=== PATIENT | female | born 1990 | race Caucasian/White ===

== ENCOUNTER 2025-05-10 16:02 | Emergency (ER) | payer MEDICAID, SELFPAY ==
[2025-05-10 16:03] VITALS: BP 132/82; PULSE 61; TEMP 37.3; O2SAT 99
--- NOTE | 2025-05-10 16:05 | XRR_ITS ---
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 Views: 3 or more views. COMPARISON: No relevant prior studies available. FINDINGS: Bones/joints: No acute fracture. Normal alignment. Soft tissues: Normal. XR/XR wrist RT min 3V* [id number] IMPRESSION: No acute findings.
--- NOTE | 2025-05-10 16:55 | W.ED.EXTPRO ---
HPI - Extremity Problem General: Chief complaint: Extremity Injury, Upper Stated complaint: Hurt R Wrist Time Seen by Provider: 05/10/25 16:04 Source: patient Mode of arrival: ambulatory Limitations: no limitations History of Present Illness: Patient is a 35-year-old female who presents emergency department claiming of right wrist pain for the past couple days. 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 Pain worse with grasping objects, but she has not been having any weakness or numbness into her hand. No pain with range of motion at the wrist, pain is specifically worse with palpation as well. [id number] meds only, she arrives with an [place] wrap. No elbow pain. No trauma. MD Complaint: joint pain Onset (ago): day(s) Pain Consistency: constant Location: right and upper extremity (wrist) Associated symptoms: Deny chest pain, fever(s) or rash Related Data Home Medications ?Medication ?Instructions ?Recorded ?Confirmed amoxicillin 500 mg capsule 500 mg PO TID 05/05/25 05/05/25 Previous Rx's ?Medication ?Instructions ?Recorded lidocaine HCl 2 % mucosal solution 1 applic mucous membrane BID #100 05/05/25 (Lidocaine Viscous) mL prednisone 20 mg tablet 60 mg (3 x 20 mg) PO DAILY 5 days 05/05/25 #15 tabs Allergies Allergy/AdvReac Type Severity Reaction Status Date / Time ceclor Allergy Mild rash Uncoded 05/10/25 16:10 Review of Systems General: Reports: 10 or more systems reviewed and unremarkable except in HPI and below Const: Denies: fever(s) or chills Card: Denies: chest pain Resp: Denies: dyspnea or productive cough GI: Denies: abdominal pain, nausea, vomiting or diarrhea : Denies: flank pain Musc: Reports: joint pain (right wrist); Denies: neck pain, back pain, extremity pain, extremity swelling, joint swelling, joint redness, joint warmth, limited range of motion or muscle weakness Skin/Breast: Denies: rash Neuro: Denies: headache(s), numbness in extremities or weakness in extremities PFS ED PFSH: Family History Mother Hypertension Social History Smoking and tobacco/nicotine status: never used tobacco/nicotine Alcohol intake: never Substance/Drug Use: never Adopted: No Caregiver/support person: No Lives independently: No Household members: spouse and children Housing: Manufactured/Mobile home Current occupational status: employed Sexually active: Yes Do you think of yourself as: Straight/Heterosexual Current gender identity: Female Physical Exam Const: COMMON NORMALS: no acute distress, patient oriented x3, no limitations, healthy appearing, alert and well nourished HENMT: COMMON NORMALS: normocephalic and atraumatic HEAD & SCALP: normocephalic and atraumatic Neck/C-Spine: COMMON NORMALS: full ROM, supple and no meningeal signs Resp: COMMON NORMALS: normal respiratory effort, No use of accessory muscles and clear to auscultation bilaterally AUSCULTATION: clear to auscultation bilaterally Cardio: COMMON NORMALS: regular rate and regular rhythm RATE: regular rate RHYTHM: regular rhythm Extremity: COMMON NORMALS: capillary refill normal and no clubbing, cyanosis or edema NARRATIVE EXTREMITY EXAM: Tender to palpation to distal right wrist. No swelling, signs of trauma or deformity, or bruising. Negative Phalen's. Negative Tinel's sign. No pain with range of motion at the wrist. Normal elbow examination. Neuro: COMMON NORMALS: patient oriented x3, moves all extremities, no focal motor deficits and no sensory deficits noted SENSORIUM/ORIENTATION: Yes alert MENINGEAL SIGNS: Yes no meningeal signs Skin: COMMON NORMALS: no rashes or lesions noted GENERAL SKIN EXAM: no rashes or lesions noted Course Vital Signs: Vital signs: Vital Signs Temperature 99.2 F 05/10/25 16:03 Pulse Rate 61 05/10/25 16:03 Blood Pressure 132/82 05/10/25 16:03 Pulse Oximetry 99 05/10/25 16:03 Oxygen Delivery Me thod Room Air 05/10/25 16:03 MDM - Extremity (Nontraumatic) Medical Decision Making Patient presented with right wrist pain, no trauma, states that 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 No concern for carpal tunnel syndrome, negative testing for this on exam. There is no swelling of the wrist or signs of deformity or trauma. She was tender to palpation of the distal right wrist with point tenderness. The x-ray was negative for any acute findings. Suspect muscle strain. Will be sent home with instructions for conservative management. XR interpretation done by ED provider, pending radiology final review ED provider radiology interpretation(s): X-ray right hand negative. Discharge Plan Discharge Patient Disposition: Home Clinical Impression: Right wrist sprain Qualifiers: Encounter type: initial encounter Wrist sprain location: unspecified location Qualified Code(s): S63.501A - Unspecified sprain of right wrist, initial encounter Condition: Stable Prescriptions: No Action amoxicillin 500 mg capsule 500 mg PO TID prednisone 20 mg tablet 60 mg PO DAILY 5 Days Qty: 15 0RF lidocaine HCl [Lidocaine Viscous] 2 % solution 1 applic mucous membrane BID Qty: 100 0RF Discharge Orders: Discharge ED (Routine); Ordered 05/10/25 Ordered By: Lauri Weinstein Referrals: SANDY [Other] Varinder Nelson FNP [Primary Care Provider, Family Practice] Patient Instructions: Patient Portal & Luna Instructions Activity Restrictions/Additional Instructions: Wrist Pain Discharge Instructions Diagnosis: Right wrist pain, X-ray normal. Suspected myopathy (etiology undetermined). Discharge Instructions and Home Management: - Activity Modification: - Avoid activities that exacerbate wrist pain, especially repetitive or forceful wrist movements. - Use the affected hand for light activities only; avoid heavy lifting or weight-bearing tasks. - Immobilization: - Consider a wrist-neutral splint, especially at night, to reduce strain and support the joint. Nighttime splinting has demonstrated benefit in various wrist pain syndromes and is a low-risk intervention. - Pain Management: - Use acetaminophen or NSAIDs as needed for pain control, unless contraindicated. - Apply ice packs to the wrist for 15?20 minutes up to three times daily to reduce discomfort. - Physical Therapy and Exercise: - Begin gentle [id number] and stretching exercises as tolerated to prevent stiffness. - Sensorimotor control-based exercise programs (e.g., [facility]-wrist) focus on proprioceptive training, isometric and dynamic exercises, and gradual functional re-education. These programs are designed to improve neuromuscular control and function, not just pain. - If available, referral to a certified hand therapist or physical therapist is recommended for supervised exercise progression and education. - Monitoring and Red Flags: - Monitor for new or worsening symptoms, including progressive weakness, muscle atrophy, fasciculations, or involvement of other muscle groups. - Seek prompt medical attention if there is development of systemic symptoms (fever, rash, weight loss), dysphagia, dyspnea, or if pain becomes severe and unremitting. - Further Evaluation: - Outpatient laboratory evaluation may be indicated to assess for underlying causes of myopathy (e.g., creatine kinase, thyroid function, vitamin D, autoimmune markers). - If symptoms persist beyond 2?4 weeks or worsen, consider referral to neurology or rheumatology for further diagnostic workup, including possible EMG/NCS or MRI if clinically indicated. - Patient Education: - Reassure that most cases of nonspecific wrist pain with normal imaging and no red flag features improve with conservative management. - Emphasize adherence to activity modification and home exercise program for optimal recovery. Follow-Up: - Schedule follow-up in 2?4 weeks or sooner if symptoms worsen or new neurological deficits develop. References: Recommendations are based on current guidance from the [place] [employer], the [place] [employer], and recent reviews on myopathy and wrist pain management. Stand Alone Forms: Work/School Release Print Language: Upper Sorbian Coding Level of Care Code ED [employer] Helper for Jass Price
== END 2025-05-10 17:37 | disposition home or self-care (01) ==
PROVIDERS: Emergency Provider Physician Assistant; PCP Registered Nurse
DX: S63.501A Unspecified sprain of right wrist, initial encounter (principal); X58.XXXA Exposure to other specified factors, initial encounter
CPT/HCPCS: 73110; 99283; J9999

== ENCOUNTER 2025-06-16 11:17 | Emergency (ER) | payer MEDICAID, SELFPAY ==
--- NOTE | 2025-06-16 11:24 | XR_ITS ---
WS: [id number] Left ankle, 3 views, 06/16/2025 Clinical Data: Trauma Comparison: None. Findings: No fractures are seen. There is a medial tilt to the talus with widening of the lateral ankle mortise. There is irregularity of the anterior aspect of the distal tibia. There is irregularity of the tip of the distal left fibula probably from an old injury. The talus and calcaneus are unremarkable. No soft tissue swelling over the medial or lateral malleolus is seen. XR/XR ankle LT min 3V* [id number] Impression: 1. Widening of the lateral ankle mortise. 2. Irregularity of the anterior distal aspect of the distal tibia which may be from a chronic injury. 3. Irregularity of tip of distal left fibula, probably from an old injury.
[2025-06-16 11:28] VITALS: BP 122/86; PULSE 78; RESP 16; TEMP 36.9; O2SAT 99; BMI 36.3
--- NOTE | 2025-06-16 11:33 | W.ED.EXTPRO ---
HPI - Extremity Problem General: Chief complaint: Extremity Injury, Lower Stated complaint: Left ankle pain Time Seen by Provider: 06/16/25 11:24 History of Present Illness: 35-year-old female who presents emergency room with left ankle pain. She states she had a very remote injury and did not receive good care she has occasional flareups of pain. She said over the last couple days her ankle started hurting more. Pain in the left medial malleolus. Possibly some mild bruising there. 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 No obvious deformities. Neurovascular intact. Related Data Home Medications ?Medication ?Instructions ?Recorded ?Confirmed amoxicillin 500 mg capsule 500 mg PO TID 05/05/25 05/05/25 Previous Rx's ?Medication ?Instructions ?Recorded lidocaine HCl 2 % mucosal solution 1 applic mucous membrane BID #100 05/05/25 (Lidocaine Viscous) mL prednisone 20 mg tablet 60 mg (3 x 20 mg) PO DAILY 5 days 05/05/25 #15 tabs dexamethasone 6 mg tablet 6 mg PO DAILY 5 days #5 tabs 06/16/25 diclofenac sodium 50 mg 50 mg PO BID PRN pain #14 tabs 06/16/25 tablet,delayed release Allergies Allergy/AdvReac Type Severity Reaction Status Date / Time ceclor Allergy Mild rash Uncoded 05/10/25 16:10 Review of Systems Narrative: Constitutional symptoms: Negative except as documented in HPI. Skin symptoms: Negative except as documented in HPI. Eye symptoms: Negative except as documented in HPI. ENMT symptoms: Negative except as documented in HPI. Respiratory symptoms: Negative except as documented in HPI. Cardiovascular symptoms: Negative except as documented in HPI. Gastrointestinal symptoms: Negative except as documented in HPI. Genitourinary symptoms: Negative except as documented in HPI. Musculoskeletal symptoms: Negative except as documented in HPI. Neurologic symptoms: Negative except as documented in HPI. Psychiatric symptoms: Negative except as documented in HPI. Endocrine symptoms: Negative except as documented in HPI. [facility] [place] ED PFSH: Medical History (Updated 06/16/25 @ 11:43 by Sana Toro MD) Psychiatric care Family History Mother Hypertension Social History Smoking and tobacco/nicotine status: never used tobacco/nicotine Alcohol intake: never Substance/Drug Use: never Adopted: No Caregiver/support person: No Lives independently: No Household members: spouse and children Housing: Manufactured/Mobile home Current occupational status: employed Sexually active: Yes Do you think of yourself as: Straight/Heterosexual Current gender identity: Female Physical Exam Narrative: EXAM NARRATIVE: General: Alert, no acute distress. Skin: warm and dry Head: Normocephalic Neck: Trachea midline Eye: Extraocular movements are intact. Ears, nose, mouth and throat: Oral mucosa moist Respiratory: Respirations are non-labored Musculoskeletal: Normal ROM, neurovascularly intact. No deformities. Possibly some mild bruising and edema around the medial malleolus Gastrointestinal: Abdomen does not appear distended Neurological: Alert and oriented, No focal neurological deficit observed. Psychiatric: Cooperative, appropriate mood & affect. Course Vital Signs: Vital signs: Vital Signs Temperature 98.4 F 06/16/25 11:28 Pulse Rate 78 06/16/25 11:28 Respiratory Rate 16 06/16/25 11:28 Blood Pressure 122/86 06/16/25 11:28 Pulse Oximetry 99 06/16/25 11:28 Oxygen Delivery Me thod Room Air 06/16/25 11:28 MDM - Extremity (Nontraumatic) Medical Decision Making Medical decision making: Differential diagnosis including but not limited to and based on the above HPI, review of systems and physical exam: In this patient with a musculoskeletal extremity pain and swelling x-ray is being ordered to rule out fractures and dislocations. Orders placed to evaluate differential diagnosis based on the above differential, HPI and physical exam X-ray of the left ankle: Widening of the lateral ankle mortise he has, irregular the anterior distal aspect of the distal tibia and irregularity of the tip of the distal left fibula all likely from the old injury. This was reviewed and interpreted by myself the emergency room physician. I also reviewed the radiology report. Assessment and plan: Ankle pain ? IM Toradol in the emergency room. - Discharged home - Discussed plan with patient. Answered any questions. - Evaluation and treatment of this problem were appropriate in the emergency setting. Lab Data Radiology Impressions Ankle X-Ray 06/16/25 11:24 Impression: 1. Widening of the lateral ankle mortise. 2. Irregularity of the anterior distal aspect of the distal tibia which may be from a chronic injury. 3. Irregularity of tip of distal left fibula, probably from an old injury. All radiology interpretation(s) finalized by discharge Discharge Plan Discharge Patient Disposition: Home Clinical Impression: Ankle pain Condition: Stable Prescriptions: New dexamethasone 6 mg tablet 6 mg PO DAILY 5 Days Qty: 5 0RF diclofenac sodium 50 mg tablet,delayed release (DR/EC) 50 mg PO BID PRN (Reason: pain) Qty: 14 0RF No Action amoxicillin 500 mg capsule 500 mg PO TID prednisone 20 mg tablet 60 mg PO DAILY 5 Days Qty: 15 0RF lidocaine HCl [Lidocaine Viscous] 2 % solution 1 applic mucous membrane BID Qty: 100 0RF Discharge Orders: Discharge ED (Routine); Ordered 06/16/25 Ordered By: Sana Toro Referrals: Varinder Nelson FNP [Primary Care Provider, Family Practice] Héctor Pierce DO [Physician, Orthopedics] Referral Note: Call for an appointment with orthopedics if pain persists Discharge Diet: Usual diet Discharge Activity: Increase activity as tolerated Patient Instructions: Opioid Safety, Pain Management, Patient Portal & Luna Instructions Activity Restrictions/Additional Instructions: Thank you for choosing [facility] for your healthcare needs today. You have been screened and evaluated and felt safe for discharge. Health conditions do change or evolve sometimes and as such it is important that you follow up with your Primary Doctor to be re checked, 3-5 days is a general good time frame for follow up. You are always welcome to return to the ED for re assessment if your symptoms are worsening or you have new concerns Print Language: Japanese Coding Level of Care Code ED Pad Tufter for Jass Price
[2025-06-16 12:05] VITALS: BP 128/87; PULSE 78; O2SAT 98
== END 2025-06-16 12:06 | disposition home or self-care (01) ==
PROVIDERS: Emergency Provider Emergency Medicine; PCP Registered Nurse
DX: M25.572 Pain in left ankle and joints of left foot (principal)
CPT/HCPCS: 73610; 96372; 99284; J1885

== ENCOUNTER → 2025-07-13 15:36 | Outpatient (BNVA) | payer MEDICAID, SELFPAY | PROVIDERS: PCP Registered Nurse; Visit Provider Emergency Medicine | DX: R39.9 Unspecified symptoms and signs involving the genitourinary system (principal) | CPT/HCPCS: 81000 ==

== ENCOUNTER → 2025-09-28 17:53 | Outpatient (BNVA) | payer OTHER, SELFPAY | PROVIDERS: PCP Registered Nurse; Visit Provider Family Medicine | DX: J06.9 Acute upper respiratory infection, unspecified (principal) | CPT/HCPCS: 87400; 87426 ==